=== PATIENT | female | born 2000 | race Caucasian/White ===

== ENCOUNTER 2021-09-08 10:40 | Emergency (ER) | payer OTHER, SELFPAY ==
[2021-09-08] VITALS (12 sets, daily range): BP systolic 114–126; BP diastolic 67–85; PULSE 77–87; RESP 15–16; TEMP 36.4; O2SAT 97–100
--- NOTE | 2021-09-08 10:57 | ED.ALLEREA ---
HPI - Allergic Reaction General Chief complaint: Allergic Reaction Stated complaint: hives/? allergic reaction Time Seen by Provider: 09/08/21 10:49 Source: patient History of Present Illness HPI narrative: Patient presents with concern for allergic reaction. Patient does have a history of allergies such as whey protein and she does see an painter maintenance. When she occasionally has an exposure she has a breakout of hives able to control it with Benadryl. Her symptoms started yesterday she took Benadryl last night woke up she continued to have symptoms and reported an itchy throat called her primary care doctor and referred to ER for evaluation. She denies any shortness of breath or difficulty swallowing denies any nausea vomiting or diarrhea. Related Data Home Medications Medication Instructions Recorded Confirmed cyproheptadine 4 mg tablet 4 mg PO .nightly tablet 01/04/21 01/04/21 desmopressin 4 mcg/mL injection 4 mcg IM DAILY PRN 01/04/21 01/04/21 solution montelukast 10 mg tablet 10 mg PO DAILY 01/04/21 01/04/21 norethindrone acetate 5 mg tablet 5 mg PO DAILY 01/04/21 01/04/21 Allergies Allergy/AdvReac Type Severity Reaction Status Date / Time acetaminophen Allergy Severe platelette Verified 01/04/21 09:53 [From Tylenol-Codeine #3] function disorder codeine Allergy Severe platelette Verified 01/04/21 09:53 [From Tylenol-Codeine #3] function disorder ibuprofen Allergy Severe platelette Verified 01/04/21 09:53 function disorder Review of Systems Review of Systems: CONSTITUTIONAL: Denies fever, chills, or sweats. EYES: Denies visual changes, redness, or discharge. ENT: Denies rhinorrhea, congestion, sore throat, or otalgia. CARDIOVASCULAR: Denies chest pain, palpitations, or edema. RESPIRATORY: Denies cough or dyspnea. GASTROINTESTINAL: Denies abdominal pain, nausea, vomiting, or diarrhea. GENITOURINARY: Denies dysuria or hematuria. SKIN: Diffuse pruritus and hives MUSCULOSKELETAL: Denies back pain, joint pain, or myalgia. NEUROLOGIC: Denies headache, numbness, dizziness, or weakness. PSYCHIATRIC: Denies anxiety or depression. All systems reviewed & are unremarkable except as noted in HPI and below PMFSH Surgical History Surgical History H/O knee surgery Social History Social History Smoking status: Never smoker Alcohol intake: never Substance use: never Substance use type: does not use Additional occupation/education comments: [employer] Exam Narrative: GENERAL: Well-appearing, well-nourished, and in no acute distress. HEAD: Normocephalic, atraumatic. EYES: PERRLA and EOMI. ENT: Nares clear, no rhinorrhea or epistaxis. Mucous membranes moist. No uvula edema no swelling the posterior pharynx NECK: Supple. No masses. No JVD CHEST: Clear to auscultation. No respiratory distress. No wheezes rales or rhonchi HEART: Regular rate and rhythm. No murmur heard. Normal peripheral pulses. ABDOMEN: Soft, nontender, nondistended, normal active bowel sounds. EXTREMITIES: Normal range of motion. No edema. SKIN: Warm, dry diffuse mild to moderate urticaria prominent on the torso and extremities NEURO: No focal deficits. Alert and oriented x3. PSYCH: Normal mood and affect. Course Reevaluation(s) Reevaluation #1: Patient reports feeling much improved to like she can manage her symptoms at home she would like to be discharged. Improving symptoms safe plan. Date: 09/08/21 Time: 12:32 Vital Signs Vital signs: Vital Signs Pulse Rate 81 09/08/21 10:48 Respiratory Rate 15 09/08/21 10:48 Pulse Oximetry 100 09/08/21 10:48 Temperature 36.4 C L 09/08/21 10:49 Pulse Rate 87 09/08/21 12:01 Respiratory Rate 16 09/08/21 12:01 Blood Pressure 114/67 09/08/21 12:01 Pulse Oximetry 100 09/08/21 12:01 MDM - Allergic Reaction MDM [facility]
[2021-09-08] MEDS: predniSONE 20 MG TABLET 60 MG PO (11:02)
[2021-09-08] MEDS: diphenhydrAMINE HCl CAP 25 MG CAPSULE 50 MG PO (11:02)
== END 2021-09-08 12:43 | disposition home or self-care (01) ==
PROVIDERS: Emergency Provider Emergency Medicine; PCP Internal Medicine
DX: L50.0 Allergic urticaria (principal)
CPT/HCPCS: 99283; A9270; J7512

== ENCOUNTER 2022-09-09 10:48 | Emergency (ER) | payer OTHER, SELFPAY ==
--- NOTE | ~2022-09-09 | US_ITS ---
US OB <= 14 weeks fetus DATE: 09/09/2022 12:06 INDICATION: Vaginal bleeding. Recent positive test, but late as test is negative. TECHNIQUE: Real-time imaging via transabdominal and transvaginal approaches COMPARISON: None FINDINGS: The uterus measures approximately 7 cm height, 2.9 cm AP dimension. Central endometrial ech o complex measures approximately 6 mm AP dimension. No intrauterine gestational sac is identified. Right ovary 3.6 x 1.9 x 2.5 cm. Left ovary 2.7 x 2 x 1.7 cm. Vascular flow to the ovaries is noted. No abnormal free pelvic fluid collection is evident. IMPRESSION: No intrauterine gestational sac is identified. Reviewed, dictated and finalized at [facility]. Reviewed, dictated and finalized at location [facility].
[2022-09-09 10:49] VITALS: BP 142/88; PULSE 89; RESP 18; TEMP 36.7; O2SAT 100
[2022-09-09 11:00] LABS: Basophils Percent Auto 0.5 % (0.2-1.2); Eosinophils Absolute Auto 0.1 K/mm3 (0-0.3); Eosinophils Percent Auto 1.5 % (0-4.4); Hematocrit 42.3 % (37.0-47.0); Hemoglobin 13.3 g/dL (12.0-15.0); Immature Granulocyte Absolute 0.02 K/mm3 (0.00-0.031); Immature Granulocyte Percent A 0.3 % (0-0.5); Lymphocytes Absolute Auto 2.46 K/mm3 (0.9-3.2); Lymphocytes Percent Auto 31.6 % (18.3-44.2); Mean Corpuscular HGB Conc 31.4 g/dl (32-36); Mean Corpuscular Hemoglobin 26.9 pg (26-34); Mean Corpuscular Volume 85.5 fl (80-100); Mean Platelet Volume 9.7 fl (7.4-10.4); Monocytes Absolute Auto 0.5 K/mm3 (0.1-0.6); Monocytes Percent Auto 6.5 % (2.6-8.5); Neutrophils Absolute Auto 4.6 K/mm3 (1.3-6.7); Neutrophils Percent Auto 59.6 % (45.5-73.1); Platelet Count Result 263 k/mm3 (150-375); Red Blood Count 4.95 M/mm3 (4.2-5.4); Red Cell Distribution Width 12.8 % (11.5-14.5); White Blood Count 7.8 K/mm3 (4.5-10.0)
[2022-09-09 11:27] LABS: Beta HCG Quantitative < 2.39 mIU/ML
--- NOTE | 2022-09-09 12:11 | ED.GENADULT ---
HPI - General Adult General Chief complaint: Vaginal Bleeding Stated complaint: post miscarriage Time Seen by Provider: 09/09/22 11:42 History of Present Illness HPI narrative: 21-year-old female presented the emergency department for evaluation of vaginal bleeding. Patient suspects she is approximately 1 month . Patient is G1, P0. Patient noticed the bleeding today. Patient states she is having some abdominal cramping which she describes as menstrual cramping. Patient denies any associated nausea vomiting or diarrhea. Patient reports she has follow-up with Dr. Reaves for OB but has not yet had an ultrasound with this . Patient reports she did have 4 positive home test. Related Data Home Medications Medication Instructions Recorded Confirmed cyproheptadine 4 mg tablet 4 mg PO .nightly 01/04/21 01/04/21 desmopressin 4 mcg/mL injection 4 mcg IM DAILY PRN 01/04/21 01/04/21 solution montelukast 10 mg tablet 10 mg PO DAILY 01/04/21 01/04/21 norethindrone acetate 5 mg tablet 5 mg PO DAILY 01/04/21 01/04/21 Allergies Allergy/AdvReac Type Severity Reaction Status Date / Time acetaminophen Allergy Severe platelette Verified 09/09/22 10:54 [From Tylenol-Codeine #3] function disorder codeine Allergy Severe platelette Verified 09/09/22 10:54 [From Tylenol-Codeine #3] function disorder ibuprofen Allergy Severe platelette Verified 09/09/22 10:54 function disorder Review of Systems Review of Systems: All systems reviewed & are unremarkable except as noted in HPI and below PMFSH Surgical History Surgical History H/O knee surgery Social History Social History Smoking status: Never smoker Alcohol intake: never Substance use: never Substance use type: does not use Occupation/Education: occupation Additional occupation/education comments: [employer] Exam Narrative: APPEARANCE: Well appearing, no pain, no distress, well-nourished. HEAD: normocephalic, atraumatic. EYES: PERRLA/EOMI, conjunctivae clear THROAT: Pharynx clear, no exudate. NECK: Supple. No adenopathy, no masses. RESPIRATORY: Airway patent, respirations nonlabored. Clear to auscultation bilaterally, no rales, rhonchi, wheezing. CARDIOVASCULAR: Regular rate and rhythm without murmurs rubs or gallops. ABDOMINAL: Soft, nontender, nondistended, normal bowel sounds MUSCULOSKELETAL: Moves all extremities. Strength/ROM intact, No edema, No calf tenderness. NEURO: Alert. Cranial nerves II through XII intact. Grossly intact SKIN: Warm, dry. Normal Color Course Course Emergency Course: 21-year-old female that is presented to the ED for vaginal bleeding and abdominal cramping. Ultrasound was ordered to rule out ectopic . Patient family were updated on the plan for work-up. Patient's beta hCG was less than 2.39. Patient reports that the vaginal bleeding is minimal and cramping similar to menstrual bleeding. Patient's hemoglobin was 13.3. Patient's blood type was a positive. ultrasound showed no sac. With the low beta-hCG and no identified sac a miscarriage is highly suspected. Patient and family were updated on the results of the work-up and they were encouraged of close follow-up with the patient's DATA VIRTUALIZATION CONSULTANT. Patient family comfortable with the plan for discharge and close follow-up. Reasons to return to the emergency department were discussed. On reexamination at time of discharge patient had only minimal tenderness to palpation and was in no distress. Low concern for ectopic at this time. Vital Signs Vital signs: Vital Signs Temperature 98.0 F 09/09/22 10:49 Pulse Rate 89 09/09/22 10:49 Respiratory Rate 18 09/09/22 10:49 Blood Pressure 142/88 H 09/09/22 10:49 Pulse Oximetry 100 09/09/22 10:49 Oxygen Delivery Room
[2022-09-09 14:20] VITALS: BP 120/76; PULSE 82; RESP 16; O2SAT 99
== END 2022-09-09 14:20 | disposition home or self-care (01) ==
PROVIDERS: Emergency Provider Emergency Medicine; PCP Internal Medicine
DX: O20.0 Threatened abortion (principal); Z3A.01 Less than 8 weeks gestation of pregnancy
CPT/HCPCS: 36415; 76801; 84702; 85025; 85461; 86850; 86900; 86901; 99284

== ENCOUNTER 2023-05-17 22:01 | Observation (INO) | payer OTHER, SELFPAY ==
[2023-05-17] VITALS (8 sets, daily range): BP systolic 106–122; BP diastolic 56–65; PULSE 138–140; TEMP 37–38.7; O2SAT 95; BMI 31.0
--- NOTE | ~2023-05-17 | XR_ITS ---
XR chest 2V 05/19/2023 08:38 Indication: Fever. Procedure: 2 view chest Comparison: No prior studies for comparison. Findings: Heart size normal. Right basilar atelectasis. No focal pneumonia, edema, pleural effusion o r pneumothorax. No acute osseous abnormality. Impression: 1: Right basilar atelectasis. Reviewed, dictated and finalized at location A. OR ACTUARIAL ANALYST Impression: 1: Right basilar atelectasis.
--- NOTE | ~2023-05-17 | US_ITS ---
US renal BI 05/19/2023 09:00 Procedure: Realtime transabdominal ultrasound of the kidneys and bladder. Indication: Fever. Urinary frequency. Comparison: No prior studies for comparison. Findings: Renal echotexture is normal bilaterally without contour deforming mass or renal calculus. T here is mild bilateral renal caliectasis. The right kidney measures 12.4 cm and left kidney measures 12.2 cm. Bladder within normal limits. Impression: 1: Mild bilateral renal caliectasis. Reviewed, dictated and finalized at location A. TRICAL TESTER BATTERY Impression: 1: Mild bilateral renal caliectasis.
[2023-05-17] MEDS: LACTATED RINGERS 1,000 ML 999 ML IV CONT (20:18)
[2023-05-17 20:21] LABS: Basophils Percent Auto 0.3 % (0.2-1.2); Hematocrit 32.9 % (37.0-47.0); Hemoglobin 10.3 g/dL (12.0-15.0); Immature Granulocyte Absolute 0.13 K/mm3 (0.00-0.031); Immature Granulocyte Percent A 0.9 % (0-0.5); Lymphocytes Absolute Auto 1.07 K/mm3 (0.9-3.2); Lymphocytes Percent Auto 7.1 % (18.3-44.2); Mean Corpuscular HGB Conc 31.3 g/dl (32-36); Mean Corpuscular Hemoglobin 25.2 pg (26-34); Mean Corpuscular Volume 80.6 fl (80-100); Mean Platelet Volume 10.3 fl (7.4-10.4); Monocytes Absolute Auto 1.1 K/mm3 (0.1-0.6); Neutrophils Absolute Auto 12.8 K/mm3 (1.3-6.7); Neutrophils Percent Auto 84.7 % (45.5-73.1); Platelet Count Result 175 k/mm3 (150-375); Red Blood Count 4.08 M/mm3 (4.2-5.4); White Blood Count 15.1 K/mm3 (4.5-10.0)
[2023-05-17 20:36] LABS: Appearance Urine Clear (Clear); Bacteria Urine None Seen /hpf; Bilirubin Urine Negative (Negative); Blood Urine Negative (Negative); Color Urine Yellow (Yellow); Glucose Urine UA 1+ mg/dL (Negative); Ketones Urine 3+ mg/dL (Negative); Leukocyte Esterase Ur Trace LEU/UL (NEGATIVE); Nitrate Urine Negative (Negative); Non Pathogenic Casts 0-2; Protein Urine Trace mg/dL (Negative); Specific Grav Ur 1.017 (1.001-1.035); Squamous Epithelial Cell Urine Few /hpf (Few); WBC Urine 21-50 /hpf (0-3); pH Urine 7.5 (5.0-9.0)
[2023-05-17 20:56] LABS: Alanine Aminotransferase 22 U/L (6-35); Alkaline Phosphatase 106 U/L (38-126); Anion Gap 8 mmol/L (8-16); Aspartate Amino Transferase 22 U/L (14-36); Bilirubin,Total 0.5 mg/dL (0.2-1.3); Blood Urea Nitrogen 3 mg/dL (7-17); Calcium 9.5 mg/dL (8.4-10.2); Carbon Dioxide 19 mmol/L (22-30); Chloride 103 mmol/L (98-107); Estimated CRCL calculation 172 ml/min; Estimated Glomerular Filt Rate > 60; Glucose 88 mg/dL (65-110); Potassium 3.5 mmol/L (3.4-5.0); Sodium 130 mmol/L (137-145)
[2023-05-17 20:58] LABS: Add Urine Microscopic? YES
[2023-05-17] MEDS: LACTATED RINGERS 1,000 ML 125 ML IV CONT (21:43)
[2023-05-17] MEDS: ceFAZolin 2 GM/D5W 50 ML 2 GM/50 ML BAG IVPB (21:45)
[2023-05-17] MEDS: ACETAMINOPHEN 500 MG TABLET 1000 MG PO (21:53)
[2023-05-18] VITALS (35 sets, daily range): BP systolic 91–129; BP diastolic 55–72; PULSE 115–149; RESP 14–16; TEMP 36.4–38.1; O2SAT 93–100
[2023-05-18] MEDS: LACTATED RINGERS 1,000 ML 125 ML IV CONT ×3 (04:58→21:34)
[2023-05-18 05:11] LABS: Appearance Urine Clear (Clear); Bacteria Urine None Seen /hpf; Bilirubin Urine Negative (Negative); Blood Urine Negative (Negative); Color Urine Yellow (Yellow); Glucose Urine UA 1+ mg/dL (Negative); Ketones Urine 2+ mg/dL (Negative); Leukocyte Esterase Ur Negative LEU/UL (NEGATIVE); Nitrate Urine Negative (Negative); Non Pathogenic Casts 0-2; Protein Urine Trace mg/dL (Negative); RBC Urine 0-2 /hpf (0-2); Specific Grav Ur 1.022 (1.001-1.035); Squamous Epithelial Cell Urine None seen /hpf (Few); WBC Urine 0-5 /hpf (0-3)
[2023-05-18 05:12] LABS: Add Urine Microscopic? YES
[2023-05-18] MEDS: ceFAZolin 2 GM/D5W 50 ML 2 GM/50 ML BAG IVPB ×3 (06:19→22:13)
[2023-05-18] MEDS: ACETAMINOPHEN 500 MG TABLET 1000 MG PO ×3 (07:33→20:06)
--- NOTE | 2023-05-18 09:43 | PM.IMHP ---
H&P: HPI History of Present Illness Date/Time: 05/18/23 09:43 Chief Complaint: abdominal pain Narrative: The patient is a 22-year-old 2 para 0 aborta 1@ 26 /7 with the onset of low back pain and low abdominal pain Sunday prior to admission. Patient stated she was also having contractions at that time. Patient presented to Labor and delivery last evening at 6:00 p.m.. On arrival temperature was a 101.7? and patient and fetus were tachycardic. Patient labs showed an elevated white count and urine with 21 to 50 white blood cells. Patient was given IV fluid bolus, Ancef, and Tylenol. This morning the patient has significant urinary frequency and urgency as well. 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 Patient states she bleeds easily and does not stop but there is no official diagnosis. has been otherwise uncomplicated so far. Patient does report good movement. 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, disease or syndrome Surgical History Surgical History H/O knee surgery Social History Social History Smoking status: Never smoker Alcohol intake: never Substance use: never Substance use type: does not use Living arrangements: with family Occupation/Education: occupation Additional occupation/education comments: [employer] Gender identity (if verbalized by the patient): Female Sexual Orientation (if Verbalized by the Patient): Straight or Heterosexual Meds Home Medications and Allergies Home Medications Medication Instructions Recorded Confirmed Type epinephrine 0.3 mg/0.3 mL 0.3 mg (0.3 mL) IM Q5-15M PRN 09/08/21 05/17/23 Rx injection, auto-injector anaphylaxis #2 ea omalizumab 150 mg subcutaneous 300 mg subcut ONCE 01/08/23 05/17/23 History solution (Xolair) ondansetron HCl 4 mg tablet 4 mg PO Q6H PRN nausea and 02/06/23 05/17/23 Rx vomiting #30 tabs famotidine 20 mg tablet (Pepcid) 20 mg PO DAILY 05/17/23 05/17/23 History vits 75-iron 28 mg-folic pkg PO 05/17/23 History acid 800 mcg-omega-3 oral combo pack Allergies Allergy/AdvReac Type Severity Reaction Status Date / Time codeine Allergy Severe platelette Verified 03/06/23 08:58 [From Tylenol-Codeine #3] function disorder ibuprofen Allergy Severe platelette Verified 03/06/23 08:58 function disorder Vital Signs Vital Signs - 24 hr 05/17/23 18:36 05/17/23 18:37 05/17/23 18:45 Temperature 101.7 F H Pulse Rate 138 H 139 H Blood Pressure 112/65 113/63 Pulse Oximetry 95 05/17/23 19:00 05/17/23 19:15 05/17/23 20:23 Temperature Pulse Rate 140 H 138 H 140 H Blood Pressure 115/61 106/56 L 122/63 Pulse Oximetry 05/17/23 23:09 05/17/23 21:53 05/18/23 02:57 Temperature 98.6 F 101.7 F H 98.7 F Pulse Rate 115 H Blood Pressure 101/59 L Pulse Oximetry 05/18/23 03:01 05/18/23 05:41 05/18/23 07:22 Temperature 99.7 F H Pulse Rate 123 H 149 H Blood Pressure 117/61 Pulse Oximetry Exam Const: General: comfortable and no acute distress Resp: Effort & Inspection: normal respiratory effort GI: GI Palp: Yes abdominal tenderness ( mild suprapubic) and Yes Other GI palpation findings present ( no CVA tenderness) Auscultation: other ( heart tones appropriate f
[2023-05-18] MEDS: PHENAZOPYRIDINE HCL 100 MG TABLET 200 MG PO (09:57)
[2023-05-18] MEDS: SODIUM CHLORIDE 0.9% IV 1,000 ML 999 ML IV CONT (10:48)
[2023-05-19 03:07] VITALS: BP 113/73; PULSE 129; RESP 14; TEMP 37.4; O2SAT 98
[2023-05-19 03:09] VITALS: PULSE 126; O2SAT 97
[2023-05-19] MEDS: LACTATED RINGERS 1,000 ML 125 ML IV CONT (05:25)
[2023-05-19] MEDS: ceFAZolin 2 GM/D5W 50 ML 2 GM/50 ML BAG IVPB (06:19)
[2023-05-19 07:30] VITALS: TEMP 37.6
[2023-05-19 08:59] LABS: SARS-CoV-2 RNA PCR Negative (Negative)
--- NOTE | 2023-05-19 09:00 | PC.NURSE ---
Dr Sanford here to see patient, plan of care discussed. Orders received.
--- NOTE | 2023-05-19 09:09 | PM.OBPNVD ---
OB - PN: Subj Subjective Date/time seen: 05/19/23 09:09 Interval history: She states she gets occasional chills and headache. She c/o mild pelvic pressure. No dysuria. No nausea or vomiting or sore throat. Denies cough. temp of 100.6 at 1999 OB - PN: Obj Data Labs 05/17/23 19:37 05/17/23 19:37 Labs: Laboratory Results - last 24 hr 05/19/23 08:12 SARS-CoV-2 RNA (RT-PCR) Negative Imaging Radiologist's impression: Impressions Chest X-Ray 05/19/23 08:43 Impression: 1: Right basilar atelectasis. OB - PN A/P Assessment and Plan (1) Fever of unknown origin: Code(s): R50.9 - Fever, unspecified Status: Acute Plan Urine culture obtained prior to antibiotics negative, therefore neg urine origin, she does have frequency which may be positional, will check renal ultrasound and will rule out other source for fever/chills symptoms- chest xray shielded and renal ultrasound, covid test. The chest xray did show atelectasis which can cause low grade temp will start incentive spirometer. Covid neg. Will check cbc cmp. Time Spent With Patient Time: Total time spent is greater than 50% in coordination of care (as documented) at patient's floor/unit and/or counseling patient: Exam Const: General: comfortable Eyes: General: appearance normal, both eyes and all related structures Resp: Effort & Inspection: normal respiratory effort Cardio: Rate: regular rate GI: Inspection: normal to inspection (gravid nontender) : External Female Exam: normal external appearance Other: cervix closed thick high Extrem: General: normal to inspection and no calf tenderness Psych: Appearance: grossly normal
[2023-05-19 09:31] LABS: Basophils Percent Auto 0.4 % (0.2-1.2); Hematocrit 28.7 % (37.0-47.0); Hemoglobin 8.9 g/dL (12.0-15.0); Immature Granulocyte Absolute 0.06 K/mm3 (0.00-0.031); Immature Granulocyte Percent A 0.8 % (0-0.5); Lymphocytes Absolute Auto 0.71 K/mm3 (0.9-3.2); Lymphocytes Percent Auto 8.9 % (18.3-44.2); Mean Corpuscular Hemoglobin 25.4 pg (26-34); Mean Corpuscular Volume 81.8 fl (80-100); Mean Platelet Volume 10.2 fl (7.4-10.4); Monocytes Absolute Auto 0.6 K/mm3 (0.1-0.6); Neutrophils Absolute Auto 6.6 K/mm3 (1.3-6.7); Neutrophils Percent Auto 82.9 % (45.5-73.1); Platelet Count Result 140 k/mm3 (150-375); Red Blood Count 3.51 M/mm3 (4.2-5.4); Red Cell Distribution Width 14.5 % (11.5-14.5)
[2023-05-19 09:42] LABS: Alanine Aminotransferase 49 U/L (6-35); Albumin Level 3.1 g/dL (3.5-5.1); Alkaline Phosphatase 92 U/L (38-126); Anion Gap 6 mmol/L (8-16); Aspartate Amino Transferase 54 U/L (14-36); Bilirubin,Total 0.4 mg/dL (0.2-1.3); Calcium 8.5 mg/dL (8.4-10.2); Carbon Dioxide 18 mmol/L (22-30); Chloride 108 mmol/L (98-107); Estimated CRCL calculation 172 ml/min; Estimated Glomerular Filt Rate > 60; Glucose 121 mg/dL (65-110); Sodium 132 mmol/L (137-145)
[2023-05-19 09:43] LABS: Blood Urea Nitrogen < 2 mg/dL (7-17)
--- NOTE | 2023-05-19 10:02 | PC.NURSE ---
Repeat lab results called to jhoan Donahue to dc home this afternoon and make follow up with primary MD.
[2023-05-19 11:18] VITALS: BP 116/68; PULSE 126
[2023-05-19 11:20] VITALS: TEMP 36.4
--- NOTE | 2023-05-19 11:32 | PM.OBPNVD ---
OB - PN: Subj Subjective Date/time seen: 05/19/23 11:32 Interval history: LFT were mildly elevated. Not able to do RUQ u/s to rule out gallstones until npo for eight hours. Anemia of which is changed from admission but most likely due to hydration. Patient and mother enquired about being evauated at [facility] where she gets see her MFM. She was informed that that is an option to get evaluated at there walk in clinic. She could be discharged from here if thats what she wants. Will continue monitor and stop antibiotics since Urine culture neg. Incentive spirometer started for the atelectasis. OB - PN: Obj Data Labs 05/19/23 09:22 05/19/23 09:22 Labs: Laboratory Results - last 24 hr 05/19/23 05/19/23 08:12 09:22 WBC 8.0 RBC 3.51 L Hgb 8.9 L Hct 28.7 L MCV 81.8 MCH 25.4 L MCHC 31.0 L RDW 14.5 Plt Count 140 L MPV 10.2 Immature Gran % (Auto) 0.8 H Neut % (Auto) 82.9 H Lymph % (Auto) 8.9 L [place] % (Auto) 7.0 Eos % (Auto) 0.0 Baso % (Auto) 0.4 Lymph # (Auto) 0.71 L [place] # (Auto) 0.6 Eos # (Auto) 0.0 Baso # (Auto) 0.0 Abs Immat Gran (auto) 0.06 H Absolute Neuts (auto) 6.6 Absolute Nucleated RBC 0.0 Nucleated RBC % 0.0 Sodium 132 L Potassium 3.0 L Chloride 108 H Carbon Dioxide 18 L Anion Gap 6 L BUN < 2 L Creatinine 0.40 L Estim Creat Clear Calc 172 Estimated GFR > 60 Glucose 121 H Calcium 8.5 Total Bilirubin 0.4 AST 54 H ALT 49 H Alkaline Phosphatase 92 Total Protein 6.0 L Albumin 3.1 L SARS-CoV-2 RNA (RT-PCR) Negative Imaging Radiologist's impression: Impressions Chest X-Ray 05/19/23 08:43 Impression: 1: Right basilar atelectasis. Renal Ultrasound 05/19/23 09:08 Impression: 1: Mild bilateral renal caliectasis. OB - PN A/P Time Spent With Patient Time: Total time spent is greater than 50% in coordination of care (as documented) at patient's floor/unit and/or counseling patient:
[2023-05-19 11:47] VITALS: PULSE 117
--- NOTE | 2023-06-11 11:54 | PM.OBTRLD ---
OB - Triage/Final Diagnosis Visit Information Reason for evaluation: other ( fever of unknown origin) Comments/Additional reasons for admission: I have assessed the risk for this patient, Marianela Her, and determined that she would benefit from observation care. Evaluation Laboratory results: Laboratory Tests 05/17/23 05/18/23 05/19/23 19:37 04:57 08:12 WBC 15.1 H RBC 4.08 L Hgb 10.3 L D Hct 32.9 L MCV 80.6 MCH 25.2 L MCHC 31.3 L RDW 14.0 Plt Count 175 MPV 10.3 Immature Gran % (Auto) 0.9 H Neut % (Auto) 84.7 H Lymph % (Auto) 7.1 L [place] % (Auto) 7.0 Eos % (Auto) 0.0 Baso % (Auto) 0.3 Lymph # (Auto) 1.07 [place] # (Auto) 1.1 H Eos # (Auto) 0.0 Baso # (Auto) 0.0 Abs Immat Gran (auto) 0.13 H Absolute Neuts (auto) 12.8 H Absolute Nucleated RBC 0.0 Nucleated RBC % 0.0 Sodium 130 L Potassium 3.5 Chloride 103 Carbon Dioxide 19 L Anion Gap 8 BUN 3 L Creatinine 0.40 L Estim Creat Clear Calc 172 Estimated GFR > 60 Glucose 88 Calcium 9.5 Total Bilirubin 0.5 AST 22 ALT 22 Alkaline Phosphatase 106 Total Protein 7.0 Albumin 4.0 Urine Color Yellow Yellow Urine Appearance Clear Clear Urine pH 7.5 6.0 Ur Specific Ecru 1.017 1.022 Urine Protein Trace Trace Urine Glucose (UA) 1+ H 1+ H Urine Ketones 3+ H 2+ H Ur Blood (Man) Negative Negative Urine Nitrate Negative Negative Urine Bilirubin Negative Negative Urine Urobilinogen 1.0 1.0 Ur Leukocyte Esterase Trace H Negative Urine RBC 3-5 H 0-2 Urine WBC 21-50 0-5 Ur Squamous Epith Cells Few None seen Urine Bacteria None seen None seen Urine Casts 0-2 0-2 SARS-CoV-2 RNA (RT-PCR) Negative 05/19/23 09:22 WBC 8.0 RBC 3.51 L Hgb 8.9 L Hct 28.7 L MCV 81.8 MCH 25.4 L MCHC 31.0 L RDW 14.5 Plt Count 140 L MPV 10.2 Immature Gran % (Auto) 0.8 H Neut % (Auto) 82.9 H Lymph % (Auto) 8.9 L [place] % (Auto) 7.0 Eos % (Auto) 0.0 Baso % (Auto) 0.4 Lymph # (Auto) 0.71 L [place] # (Auto) 0.6 Eos # (Auto) 0.0 Baso # (Auto) 0.0 Abs Immat Gran (auto) 0.06 H Absolute Neuts (auto) 6.6 Absolute Nucleated RBC 0.0 Nucleated RBC % 0.0 Sodium 132 L Potassium 3.0 L Chloride 108 H Carbon Dioxide 18 L Anion Gap 6 L BUN < 2 L Creatinine 0.40 L Estim Creat Clear Calc 172 Estimated GFR > 60 Glucose 121 H Calcium 8.5 Total Bilirubin 0.4 AST 54 H ALT 49 H Alkaline Phosphatase 92 Total Protein 6.0 L Albumin 3.1 L Urine Color Urine Appearance Urine pH Ur Specific Ecru Urine Protein Urine Glucose (UA) Urine Ketones Ur Blood (Man) Urine Nitrate Urine Bilirubin Urine Urobilinogen Ur Leukocyte Esterase Urine RBC Urine WBC Ur Squamous Epith Cells Urine Bacteria Urine Casts SARS-CoV-2 RNA (RT-PCR)
== END 2023-05-19 12:04 | disposition home or self-care (01) ==
PROVIDERS: Admitting Provider Obstetrics & Gynecology Gynecology; PCP Internal Medicine; Visit Provider Obstetrics & Gynecology
DX: O23.42 Unspecified infection of urinary tract in pregnancy, second trimester (principal); O99.512 Diseases of the respiratory system complicating pregnancy, second trimester; O26.833 Pregnancy related renal disease, third trimester; J98.11 Atelectasis; Z3A.26 26 weeks gestation of pregnancy; Z20.822 Contact with and (suspected) exposure to COVID-19
CPT/HCPCS: 36415; 59025; 71046; 76775; 80053; 81001; 85025; 87086; 87088; 87635; 96360; 96361; 96365; 96374; A9270; G0378; G0379; J0690; J7030; J7120

== ENCOUNTER 2023-11-01 08:04 | Emergency (ER) | payer OTHER, SELFPAY ==
--- NOTE | 2023-11-01 08:07 | ED.URI ---
HPI - URI/Sore Throat General Chief Complaint: Upper Respiratory Infection Stated Complaint: Earache, Sore Throat,Cough,Drainage Time Seen by Provider: 11/01/23 08:05 Source: patient Mode of arrival: ambulatory Limitations: no limitations History of Present Illness HPI Narrative: Marianela is a 22-year-old female patient presenting to the clinic today with complaints of earache, sore throat, cough, and nasal drainage x1 week. She reports no known fever or chills. States she was seen in the urgent care earlier this week at [place] and they gave her Keflex. She reports that they did not do any testing of the time. She has taken a couple days worth of Keflex but states she was not feeling any better so she discontinued the medication. She has also been taking Sudafed and Mucinex to help alleviate her symptoms. States that she had a lot of drainage this morning that she coughs so hard and vomited. She is currently on her menses. No chance of . She is not breast-feeding currently. MD elicited complaint: cough, sore throat, rhinorrhea, nasal congestion and sinus pain Related Data Home Medications Medication Instructions Recorded Confirmed omalizumab 150 mg subcutaneous 300 mg subcut ONCE 01/08/23 11/01/23 solution (Xolair) Allergies Allergy/AdvReac Type Severity Reaction Status Date / Time codeine Allergy Severe platelette Verified 11/01/23 08:12 [From Tylenol-Codeine #3] function disorder ibuprofen Allergy Severe platelette Verified 11/01/23 08:12 function disorder Review of Systems Review of Systems: Pertinent positives per HPI. Patient denies any fever, chills, rash, headache, visual changes, dizziness, shortness of breath, chest pain, palpitations, nausea, vomiting, diarrhea, constipation, abdominal pain, or any urinary issues. 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 There is no relevant family history pertinent to the patient complaint. Exam Narrative: General: Well-developed, well nourished, in no apparent distress Head: Normocephalic, atraumatic Eyes: Pupils equally round and reactive to light bilaterally, EOM intact, sclera and conjunctive clear, no discharge, lids normal Ears: TMs intact and congested, ear canals clear, no drainage, grossly hearing normal. Nose: Nares patent, clear nasal discharge, moderate inflammation, no sinus tenderness. Mouth: Oral pharynx mildly red without lesions or masses, good dentition, MMM. Neck: Supple, trachea midline, no enlargement of anterior or posterior cervical nodes, no thyroid masses or goiter palpable. Cardio: Regular rate and rhythm, s1 and s2 normal, no murmur appreciated. Resp: Clear to auscultation bilaterally, no rhonchi, rales, wheezing or rubs Course Course Emergency Course: Portions of this record may have been created with voice recognition software. Level of Care: Express Care Visit Vital Signs Vital signs: Vital signs reviewed MDM - URI/Sore Throat MDM Narrative Medical decision making narrative: At the time of visit pat
[2023-11-01 08:15] VITALS: BP 117/87; PULSE 93; RESP 20; TEMP 36.6; O2SAT 100
== END 2023-11-01 08:35 | disposition home or self-care (01) ==
PROVIDERS: Emergency Provider Nurse Practitioner Family; PCP Internal Medicine
DX: B34.9 Viral infection, unspecified (principal); J06.9 Acute upper respiratory infection, unspecified; J02.9 Acute pharyngitis, unspecified; Q79.60 Ehlers-Danlos syndrome, unspecified
CPT/HCPCS: 87081; 87880; 99213; G0463

== ENCOUNTER 2024-01-31 08:04 | Emergency (ER) | payer OTHER, SELFPAY ==
--- NOTE | 2024-01-31 08:08 | ED.URI ---
HPI - URI/Sore Throat General Chief Complaint: Upper Respiratory Infection Stated Complaint: SORE THROAT/SNEEZING/HEADACHE Time Seen by Provider: 01/31/24 08:08 Source: patient Mode of arrival: ambulatory Limitations: no limitations History of Present Illness HPI Narrative: 23-year-old female presents with complaint of sore throat, nasal congestion, sneezing since yesterday. Afebrile. No strep or COVID exposure. Patient works in doctor's office. Wants to be tested for strep throat. All systems reviewed and negative except as noted above. Related Data Home Medications Medication Instructions Recorded Confirmed omalizumab 150 mg subcutaneous 300 mg subcut ONCE 01/08/23 01/31/24 solution (Xolair) sertraline 25 mg tablet mg 01/31/24 01/31/24 Allergies Allergy/AdvReac Type Severity Reaction Status Date / Time codeine Allergy Severe platelette Verified 01/31/24 08:14 [From Tylenol-Codeine #3] function disorder ibuprofen Allergy Severe platelette Verified 01/31/24 08:14 function disorder Review of Systems Review of Systems: CONSTITUTIONAL: Denies fever, chills, or sweats. EYES: Denies visual changes, redness, or discharge. ENT: Reports rhinorrhea, congestion, sore throat, sneezing. Denies otalgia. CARDIOVASCULAR: Denies chest pain, palpitations, or edema. RESPIRATORY: Denies cough or dyspnea. GASTROINTESTINAL: Denies abdominal pain, nausea, vomiting, or diarrhea. GENITOURINARY: Denies dysuria or hematuria. SKIN: Denies rash or itching. MUSCULOSKELETAL: Denies back pain, joint pain, or myalgia. NEUROLOGIC: Denies headache, numbness, or weakness. PSYCHIATRIC: Denies anxiety or depression. All other systems reviewed are negative, except as documented in HPI. 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 There is no relevant family history pertinent to the presenting complaint. Exam Narrative: GENERAL: This is a well-nourished, well-developed patient, in no apparent distress. HEAD: normocephalic, atraumatic. EYES: PERRL. Sclera clear/white. Vision is grossly intact. EARS: External ears normal, auditory canals clear and without drainage, TMs normal without perforation. Hearing grossly intact. NOSE: External nose normal with no obvious nasal discharge, nares without redness, no rhinorrhea. THROAT: Mucous membranes moist, posterior pharynx clear. NECK: Neck supple, non-tender without lymphadenopathy, masses or thyromegaly. CARDIOVASCULAR: Regular rate and rhythm without murmurs, gallops, or rubs. RESPIRATORY: Clear to auscultation. Breath sounds equal bilaterally. No wheezes, rales, or rhonchi. SKIN: warm, Dry, intact with no suspicious lesions or rash, good texture and turgor. NEURO: awake, alert, and oriented to person, place and time. There were no obvious focal neurologic abnormalities. EXTREMITIES: No joint tenderness, effusion, or edema noted. Course Course Level of Care: Express Care Visit Vital Signs Vital signs: Reviewed MDM - URI/Sore Throat MDM Narrative Medical decision making narrative: Negative COVID and strep arielle
[2024-01-31 08:39] LABS: EDSTREPNEGPOS1 Negative
[2024-01-31 08:48] VITALS: BP 132/78; PULSE 97; RESP 16; TEMP 36.4; O2SAT 100
== END 2024-01-31 08:49 | disposition home or self-care (01) ==
PROVIDERS: Emergency Provider Nurse Practitioner Family; PCP Internal Medicine
DX: J06.9 Acute upper respiratory infection, unspecified (principal); Q79.60 Ehlers-Danlos syndrome, unspecified
CPT/HCPCS: 87081; 87426; 87880; 99213; G0463

== ENCOUNTER 2025-04-26 10:47 | Emergency (ER) | payer OTHER, SELFPAY ==
[2025-04-26 11:04] VITALS: BP 126/77; PULSE 81; RESP 16; TEMP 36.2; O2SAT 100
--- NOTE | 2025-04-26 12:23 | ED_ITS ---
HPI - URI/Sore Throat General Chief Complaint: Upper Respiratory Infection Stated Complaint: Sore Throat Time Seen by Provider: 04/26/25 12:18 Source: patient and RN notes reviewed Mode of arrival: ambulatory Limitations: no limitations History of Present Illness HPI Narrative: 24-year-old female patient presents today with a 2 day history of sore and scratchy throat, cough, nasal congestion. Denies fever or shortness of breath. She has tried 1 dose of NyQuil and cough drops without much improvement and currently rates her pain 2/10. Related Data Home Medications ?Medication ?Instructions ?Recorded ?Confirmed ?Last Taken ?Type omalizumab 150 mg subcutaneous 300 mg subcut ONCE 12/2401/31/24 04/30/23 History solution (Xolair) sertraline 50 mg tablet mg 04/26/25 Unknown History Allergies Allergy/AdvReac Type Severity Reaction Status Date / Time codeine (From Allergy Severe platelette Verified 04/26/25 11:18 Tylenol-Codeine #3) function disorder ibuprofen Allergy Severe platelette Verified 04/26/25 11:18 function disorder PMFSH Past Medical History Medical History History of spontaneous Chronic urticaria Tara-Danlos syndrome Platelet disorder, disease or syndrome Surgical History Surgical History H/O knee surgery Social History Social History Smoking status: Never smoker Alcohol intake: never Substance use: never Substance use type: does not use Living arrangements: with family Occupation/Education: occupation Additional occupation/education comments: [employer] Gender identity (if verbalized by the patient): Female Sexual Orientation (if Verbalized by the Patient): Straight or Heterosexual Comments At time of signature, I have reviewed and agree with nursing past medical, surgical, social and family history unless otherwise noted. Please see nursing chart for further information. There is no relevant family history pertinent to the presenting complaint Exam Narrative: GENERAL: Well-appearing, well-nourished, and in no acute distress. HEAD: Normocephalic, atraumatic. EYES: EOMI. No redness or drainage. Conjunctivae normal. ENT: Mucous membranes pink and moist. Nares mildly congested. No rhinorrhea. TMs normal bilaterally. Throat mildly erythematous without edema or exudate. Uvula midline. NECK: Normal AROM. Supple. No lymphadenopathy. CHEST: No respiratory distress. Clear to auscultation. HEART: Regular rate and rhythm. No murmur appreciated. EXTREMITIES: Normal range of motion. No edema. SKIN: Warm, dry, no rash. Capillary refill normal. Normal skin turgor. NEURO: No focal deficits. Alert and oriented x3. Gait steady. PSYCH: Normal affect. No signs of depression or anxiety. Course Course Level of Care: Express Care Visit Vital Signs Vital signs: Vital Signs Temperature 97.1 F L 04/26/25 11:04 Pulse Rate 81 04/26/25 11:04 Respiratory Rate 16 04/26/25 11:04 Blood Pressure 126/77 04/26/25 11:04 Pulse Oximetry 100 04/26/25 11:04 Temperature 97.1 F L 04/26/25 11:04 Pulse Rate 81 04/26/25 11:04 Respiratory Rate 16 04/26/25 11:04 Blood Pressure 126/77 04/26/25 11:04 Pulse Oximetry 100 04/26/25 11:04 Reviewed MDM - URI/Sore Throat MDM Narrative Medical decision making narrative: 24-year-old female patient presents today with a 2 day history of sore and scratchy throat, cough, nasal congestion. Denies fever or shortness of breath. She has tried 1 dose of NyQuil and cough drops without much improvement and currently rates her pain 2/10. Upon exam, patient has mild nasal congestion and erythematous throat. Rapid strep negative. Culture pending. Symptoms likely viral in etiology. Discussed [id number] medication use and duration of illness. No prescription medications indicated at this time. Anticipatory guidance given. Vital signs stable. Patient agrees with plan. Differential Diagnosis Differential diagnosis: Likely upper respiratory infection, otitis media, viral infection, pharyngitis and other (Strep throat) Lab Data Attestation: I reviewed the patient's lab results. Lab results narrative: Rapid strep negative Critical Care Time Critical Care Time Critical Care Time: No Discharge Plan Discharge Clinical Impression: Upper respiratory infection Qualifiers: URI type: unspecified URI Qualified Code(s): J06.9 - Acute upper respiratory infection, unspecified Patient Disposition: Home Condition: Stable Instructions: Upper Respiratory Infection (DC) Additional Instructions: Your rapid strep swab was negative today at [facility]. You will be notified in a few days if the culture comes back positive for strep, and appropriate antibiotics will be called in for you at that time. Your symptoms are likely due to a viral illness, which is not treated with antibiotics. Viral symptoms can be present for up to 7-10 days. Take Tylenol or ibuprofen for fever or pain. Rest and stay hydrated. Follow up with your PCP in 7 days if symptoms are not improving. Go to the ER immediately if you have any difficulty breathing or swallowing. Patient Language: Belgian Prescriptions: No Action sertraline 50 mg tablet Xolair 150 mg recon soln 300 mg subcut ONCE Rx Instructions: requires multiple injection sites; do not exceed 150 mg per injection site epinephrine 0.3 mg/0.3 mL auto-injector 0.3 mg IM Q5-15M PRN (Reason: anaphylaxis) Qty: 2 0RF Rx Instructions: do not exceed 3 doses per episode Follow-up/Referrals: PHYSICIAN,CARDIAC EXERCISE SPECIALIST [Primary Care Provider, Internal Medicine] Time of Disposition: 12:23
[2025-04-27 11:51] LABS: EDSTREPNEGPOS1 Negative (Negative)
== END 2025-04-26 12:24 | disposition home or self-care (01) ==
PROVIDERS: Emergency Provider Nurse Practitioner
DX: J06.9 Acute upper respiratory infection, unspecified (principal); Q79.60 Ehlers-Danlos syndrome, unspecified; D69.1 Qualitative platelet defects
CPT/HCPCS: 87081; 87880; 99213; G0463

== ENCOUNTER 2025-05-09 11:29 | Emergency (ER) | payer OTHER, SELFPAY ==
--- OUTSIDE RECORDS SUMMARY | 2024-07-01 08:25 | XMS_ITS | Continuity of Care Document ---
Author Organization [facility] Address [address] [facility] [address] [place] [address] Phone Care Team Providers Care Carbon Paper Interleafer Name Role Phone Kyung Vyas MD Unavailable Unavailable Allergies, Adverse Reactions, Alerts Substance Reaction Status Criticality No Known Allergies Active No Inform ation Procedures Procedure Date Est (Level 4) OFFICE/OUTPATIENT VISIT Nv New (Level 5) OFFICE/OUTPATIENT VISIT Advance Directives Directive Yes / No Effective Date File Name No Information Encounters Encounter Description Practice Location Reason(s) For Visit Diagnoses Date Provider Providers Copied on Encounter [facility], [address] [place] [address], [id number], [place] tel:[phone] [facility] No Information [address] [place], [address], [place]. tel:[phone] Referring Provider: Bradley Hodge, [address] [facility] [address], [place], [address]. tel:[phone] Est (Level 4) OFFICE/OUTPAT IENT VISIT [facility], [address] [place] [address], [id number], [place] tel:[phone] [facility] hives (chief complaint) Body mass index (BMI) 28.0-28.9, adultUrticaria 2 Asael Cheshil. [address], [place], [address], [place]. tel:[phone] Referring Provider: Bradley Hodge, [address] [facility] [address], [place], [address]. tel:[phone] New (Level 5) OFFICE/OUTPAT IENT VISIT [facility], [address] [place] [address], [id number], tel:[phone] [facility] hives (chief complaint) Body mass index (BMI) 26.0-26.9, adultUrticaria 2 Asael Cheshil. [address], [place], [address], [place]. tel:[phone] Referring Provider: Bradley Hodge, [address] [facility] [address], [place], [address]. tel:[phone] Family History Family Member Type Diagnosis Age At Onset Problem No family history of Allergi c rhinitis Problem No family histor y of Family history of rheumatoid arthritis Maternal grandmother Problem Thyroid disorder Maternal grandmother Problem Asthma Problem No family history of Lupus e rythematosus Payers Payer name Insurance type Covered libertarian ID Brenda solis(s) [facility] [id number] Social History Type Description Quantity Date Captured Comments Alcohol Use Details Unknown Caffeine Use Details Unknown Tobacco Use Status No Information Smoking Status No Information Sex Female Chief Complaint And Reason For Visit No Information Reason For Referral Reason For Referral No Information History Of Present Illness Encounter Date Complaint History Of Prese nt Illness hives LV: 09/13/21She h as urticaria. She presents for follow up.AlyceariaЕлена is on fexofenadine (phuong) 180 mg BID. She continues to have urticaria and some dermatographism. She continues to have a malar rash in the AM. The wheals are not pruritic. She continues to have the rash daily. She saw Dermatology. They performed a biopsy that showed urticaria, but no evidence of vasculitis.She had a positive ALEJANDRA in the context of hives and malar rash. I recommended Rheumatology evaluation. She saw Rheumatology who plans to initiate Xolair. [facility]. She will get her first injection of Xolair on 10/28/21.Data09/13/21Alpha Gal IgE undetectableTotal IgE 475CBC w/ leukocytosis and lymphocytosis without eosinophilia (AEC 94)CMP normalC3, C4, CH50 wnlTryptase normalANA positive, Nuclear, speckled pattern (no titer), reflex rheumatologic antibodies negativeShe had PST at in 2018 (Zina Carbajal, [facility]) which was positive for cat, HDM, cockroach, grass, mold, ragweed/other weeds, trees. Milk and Egg were negative. hives UrticariaShe rep orts urticaria over the last 6 days (starting 09/07/21). She has had generalized pruritus and urticaria over that time. She went to [facility] on 09/08 where she was treated with benadryl and prednisone. On 09/10, she reports developing chest pain and shortness of breath. They returned to the ED and she was treated with prednisone, benadryl, and pepcid. She was treated with IM epinephrine, which seemed to help. She was discharged home. However, she reports continued chest pain and dyspnea since that time. She has been taking benadryl and prednisone, but is not on either of those things right now. Her chest pain is on her R-side and radiating through her back under her shoulder blade. She reports a sharp burning pain. She relays a sensation of wheezing with inspiration. She reports some dyspnea. She does not report any symptoms of infection last week at the start of her hives. She has had diarrhea over the last couple of months for which see saw Gastroenterology. She was prescribed zofran and pepcid, but did not start those medications.She has had facial, finger, and foot/ankle swelling. She does report ecchymosis after resolution of the wheals. Individual lesions last < 24 hours. She reports some blurry vision. No joint pain above baseline. She is not routinely on medications. She does not take any NSAIDs due to an underlying platelet function disorder. She has not noticed an impact of pressure or vibration on her hives. Cold temperatures seem to improve the hives as well as her pruritus. Warmer temperatures seemed to worsen the sensation of pruritus. She has a history of milk allergy. She had PST at in 2018 (Zina Ace[facility]oy[facility]) which was positive for cat, HDM, cockroach, grass, mold, ragweed/other weeds, trees. Milk and Egg were negative. 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) Environmental HistoryLives in a house w/ central air/forced heat, w/o evidence of mold/water damageFlooring in Bedroom: carpetPets: dogs x 4 Functional Status Date Functional Assessmen t No Information Instructions Date Instruction Additional Grahamr isiah Giving encouragement to exercise Related to Body mass index [BMI] 28.0-28.9, adult - Concern for Urtica rial Vasculitis - recommend evaluation and skin biopsy by Dermatology - please get lab testing done at [facility] (see lab orders below)- Start Zyrtec 10 mg twice daily- if no improvement in 2 weeks, increase Zyrtec to 20 mg twice daily and add pepcid 20 mg twice daily- Follow up in 4 weeks Related to Urticaria Giving encouragement to exercise Related to Body mass index [BMI] 26.0-26.9, adult Assessments Type Assessment Date No Information Patient Care Teams Name Effective Dates (start - stop) Status Members No Information
--- OUTSIDE RECORDS SUMMARY | 2024-07-01 08:25 | XMS_ITS | Continuity of Care Document ---
Author Organization [facility] Address [address] [facility] [address] [place] [address] Phone Care Team Providers Care Bight Maker Name Role Phone Kyung Vyas MD Unavailable Unavailable Allergies, Adverse Reactions, Alerts Substance Reaction Status Criticality No Known Allergies Active No Inform ation Procedures Procedure Date Est (Level 4) OFFICE/OUTPATIENT VISIT Ks New (Level 5) OFFICE/OUTPATIENT VISIT Advance Directives Directive Yes / No Effective Date File Name No Information Encounters Encounter Description Practice Location Reason(s) For Visit Diagnoses Date Provider Providers Copied on Encounter [facility], [address] [place] [address], [id number], [place] tel:[phone] [facility] No Information [address]. [address] [place], [address], [place]. tel:[phone] Referring Provider: Bradley Hodge, [address] [facility] [address], [place], [address]. tel:[phone] Est (Level 4) OFFICE/OUTPAT IENT VISIT [facility], [address] [place] [address], [id number], [place] tel:[phone] [facility] hives (chief complaint) Body mass index (BMI) 28.0-28.9, adultUrticaria 2 Asael Cheshil. [address], [place], [address], [place]. tel:[phone] Referring Provider: Bradley Hodge, [address] [facility] [address], [place], [address]. tel:[phone] New (Level 5) OFFICE/OUTPAT IENT VISIT [facility], [address] [place] [address], [id number], tel:[phone] [facility] hives (chief complaint) Body mass index (BMI) 26.0-26.9, adultUrticaria 2 Asael Cheshil. [address], [place], [address], [place]. tel:[phone] Referring Provider: Bradley Hodge, [address] [facility] [address], [place], [address]. tel:[phone] Family History Family Member Type Diagnosis Age At Onset Problem No family history of Allergi c rhinitis Problem No family histor y of Family history of rheumatoid arthritis Maternal grandmother Problem Thyroid disorder Maternal grandmother Problem Asthma Problem No family history of Lupus e rythematosus Payers Payer name Insurance type Covered democrat ID Brenda solis(s) [facility] [id number] Social History Type Description Quantity Date Captured [...] initiate [facility]air. [facility]. She will get her first injection of [...] urticaria over that time. 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
--- OUTSIDE RECORDS SUMMARY | 2025-05-09 11:32 | XMS_ITS | Encounter Summary ---
Author Organization [facility] Address [address] [place] [address] Care Team Providers Care Hand Stoner Name Role Phone Bradley Nunez MD Primary Care Provider [phone] Encounter Details Date Type Department Care Team (Late st Contact Info) Description 05/04/2025 Misc Documentation [facility] [address] [place] [address] [place] [address] [place] [address] Social History Tobacco Use Types Packs/Day Years Used Date Smoking Tobacco: Never Passive Smoke Exposure: Past Smokeless Tobacco: Never Alcohol Use Standard Drinks/Week Comments Yes 0 (1 standard drink = 0.6 oz pur e alcohol) occ PHQ-2 Answer Date Recorded Patient Health Questionnaire-2 Score 0 04/28/2025 Comments Unknown Sex and Gender Information Value Date Recorded Sex Assigned at Not on file Legal Sex Female 9:01 PM CDT Gender Identity Not on file Sexual Orientation Not on file documented as of this encounter Plan of Treatment Upcoming Encounters Date Type Department Care Team (Late Contact Info) Description 07/31/2025 1:40 PM MICROBIOLOGY TECHNOLOGIST Office Visit [facility] [address] [place] [phone] Mercedes Whitaker MD [address] [place] [address] [phone] documented as of this encounter Visit Diagnoses Diagnosis Dizziness- Primary Dizziness and giddiness documented in this encounter Care Teams Hand Stoner Relationship Specialty Start Date End Date Bradley Nunez MD PCP - General INTERNAL MEDICINE 09/10/21 documented as of this encounter
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
--- OUTSIDE RECORDS SUMMARY | 2025-05-09 11:32 | XMS_ITS | Encounter Summary ---
Author Organization [facility] Address [address] [place] [address] Care Team Providers Care Pewter Fabricator Name Role Phone Bradley Nunez MD Primary Care Provider [phone] Encounter Details Date Type Department Care Team (Late st Contact Info) Description 04/28/2025 Results Follow-Up [facility] Family & Internal Medicine [facility] [address] [place] [phone] [place], [place] [id number] [place] [address] CORONAVIRUS (COVID-19) INFLUENZA A & B ANTIGEN IA PANEL Social History Tobacco Use Types Packs/Day Years [...] on file documented as of this encounter Functional Status * Over the past 2 weeks, how often have you been bothered by any of the following problems? Question Answer Date of Assessment Author Status Little interest or pleasure in doing things Not at all 04/28/2025 8:42 AM Clare Oden MA Act carito Feeling down, depressed, or hopeless Not at all 04/28/2025 8:42 AM EVENT SECURITY OFFICER Clare Wade MA Active Patient Health Questionnaire-2 Score 0 04/28/2025 8:42 AM EVENT SECURITY OFFICER Clare Wade MA Active documented as of this encounter Plan of Treatment Upcoming Encounters Date Type Department Care Team (Late st Contact Info) Description 07/31/2025 1:40 PM EVENT SECURITY OFFICER Office Visit [facility] Family Medicine - [place] [address] [place] [address] Mercedes Whitaker MD [address] [place] [address] documented as of this encounter Visit Diagnoses Not on filedocumented in this encounter Additional Health Concerns Infection Onset Date Last Indicated Resolved Time Respiratory Rule Out 04/28/2025 04/28/2025 025 9:03 AM EVENT SECURITY OFFICER documented as of this encounter Care Teams Pewter Fabricator Relationship Specialty Start Date End Date Bradley Nunez MD PCP - General INTERNAL MEDICINE 09/10/21 documented as of this encounter
[2025-05-09 11:44] VITALS: BP 130/88; PULSE 90; RESP 16; TEMP 36.7; O2SAT 98
--- NOTE | 2025-05-09 12:07 | ED.GENADULT ---
HPI - General Adult General Chief complaint: Epistaxis Stated complaint: epistaxis Time Seen by Provider: 05/09/25 12:05 History of Present Illness HPI narrative: 24-year-old female history of platelet dysfunction disorder an Tara-Danlos presents to the emergency department for evaluation for a nose bleed. Patient is said to have recurrent nose bleeds but does not had one in a while. Patient states she became emotionally upset today got into a verbal argument and her nose started bleeding. Patient was had bleeding from the left naris upon arrival to the emergency department. Related Data Home Medications ?Medication ?Instructions ?Recorded ?Confirmed ?Last Taken ?Type omalizumab 150 mg subcutaneous 300 mg subcut ONCE 01/08/23 01/31/24 04/30/23 History solution (Xolair) sertraline 50 mg tablet mg 04/26/25 Unknown History Allergies Allergy/AdvReac Type Severity Reaction Status Date / Time codeine (From Allergy Severe platelette Verified 05/09/25 11:46 Tylenol-Codeine #3) function disorder ibuprofen Allergy Severe platelette Verified 05/09/25 11:46 function disorder Review of Systems Review of Systems: All systems reviewed & are unremarkable except as noted in HPI and below PMFSH Past Medical History Medical History 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 HEAD: normocephalic, atraumatic. EYES: PERRLA/EOMI, conjunctivae clear. NOSE: epistaxis from left naris EARS:TMS clear with good light reflex. THROAT: Pharynx clear, no exudate. NECK: Supple. No adenopathy, no masses. RESPIRATORY: Airway patent, respirations nonlabored. Clear to auscultation bilaterally, no rales, rhonchi, wheezing. CARDIOVASCULAR: Regular rate and rhythm without murmurs rubs or gallops. ABDOMINAL: Soft, nontender, nondistended, normal bowel sounds MUSCULOSKELETAL: Moves all extremities. Strength/ROM intact, No edema, No calf tenderness. NEURO: Alert. Cranial nerves II through XII intact. Good gait. Good coordination SKIN: Warm, dry. Normal Color Course Vital Signs Vital signs: Vital Signs Temperature 98.0 F 05/09/25 11:44 Pulse Rate 90 05/09/25 11:44 Respiratory Rate 16 05/09/25 11:44 Blood Pressure 130/88 05/09/25 11:44 Pulse Oximetry 98 05/09/25 11:44 Oxygen Delivery Room Air 05/09/25 11:44 Temperature 98.0 F 05/09/25 11:44 Pulse Rate 90 05/09/25 11:44 Respiratory Rate 16 05/09/25 11:44 Blood Pressure 130/88 05/09/25 11:44 Pulse Oximetry 98 05/09/25 11:44 Oxygen Delivery Room Air 05/09/25 11:44 Procedures Epistaxis Control left: Epistaxis Control Date: 05/09/25 Epistaxis Control Time: 12:00 Time Out Performed: Yes Nose Prepped With: oxymetazoline Direct Inspection: yes and unable to visualize Cautery Used: none Patient Tolerated Procedure: well and no complications Epistaxis Control Narrative: Initially medications soaked gauze was placed in the left naris from 12 until 12:30 [facility] Narrative Medical decision making narrative: 24-year-old female present to the emergency department for evaluation for epistaxis that started prior to arrival. Shortly after arrival patient had nasal packing with Afrin-soaked gauze and this remained place for 30 minutes. After removal of the gauze patient had no additional bleeding. Patient is currently afebrile with a leukocytosis 11.2 and a stable hemoglobin 11.4. Patient's platelet count is 237. Patient has an INR 1.0. No acute abnormalities on her CMP. Patient did have nasal packing of Afrin-soaked gauze in place for 30 minutes and after this was removed patient was evaluated for additional 30 minutes and patient had no additional bleeding. Patient was offered a rhino rocket but since patient has no additional bleeding follow-up patient would be fine with just discharge instructions and patient was provided a nasal clamp patient will be provided additional outpatient follow-up with ENT patient family are comfortable with plan for discharge instructions. All questions concerns were addressed. Differential Diagnosis Differential Diagnosis: nasal fracture, epistaxis, platlet dysfunction, elevated INR Lab Data MDM Lab Attestation statement: I personally reviewed the patient's lab results. 05/09/25 12:19 05/09/25 12:19 Labs: Lab Results 05/09/25 Range/Units 12:19 WBC 11.2 H (4.5-10.0) K/mm3 RBC 4.68 (4.2-5.4) M/mm3 Hgb 11.4 L (12.0-15.0) g/dL Hct 36.3 L (37.0-47.0) % MCV 77.6 L (80-100) fl MCH 24.4 L (26-34) pg MCHC 31.4 L (32-36) g/dl RDW 14.3 (11.5-14.5) % Plt Count 237 D (150-375) k/mm3 MPV 9.9 (7.4-10.4) fl Immature Gran % (Auto) 0.4 (0-0.5) % Neut % (Auto) 70.7 (45.5-73.1) % Lymph % (Auto) 22.7 (18.3-44.2) % [place] % (Auto) 4.7 (2.6-8.5) % Eos % (Auto) 1.1 (0-4.4) % Baso % (Auto) 0.4 (0.2-1.2) % Lymph # (Auto) 2.54 (0.9-3.2) K/mm3 [place] # (Auto) 0.5 (0.1-0.6) K/mm3 Eos # (Auto) 0.1 (0-0.3) K/mm3 Baso # (Auto) 0.0 (0.0-0.1) K/mm3 Abs Immat Gran (auto) 0.05 H (0.00-0.031) K/mm3 Absolute Neuts (auto) 7.9 H (1.3-6.7) K/mm3 Absolute Nucleated RBC 0.000 (0.0-0.012) K/mm3 Nucleated RBC % 0.0 (0.0-0.2) % PT 13.4 (11.1-14.7) Seconds INR 1.0 APTT 27.9 (22.3-36.8) Seconds Sodium 137 (137-145) mmol/L Potassium 3.9 (3.4-5.0) mmol/L Chloride 107 (98-107) mmol/L Carbon Dioxide 22 (22-30) mmol/L Anion Gap 8 (4-12) mmol/L BUN 9 D (7-17) mg/dL Creatinine 0.59 L (0.7-1.0) mg/dL Estim Creat Clear Calc 118 ml/min Estimated GFR > 60 (59 - ) Glucose 98 (65-110) mg/dL Calcium 9.4 (8.4-10.2) mg/dL Discharge Plan Discharge Clinical Impression: Epistaxis Patient Disposition: Home Condition: Stable Instructions: Antibiotic Form, Nosebleed (ED) Additional Instructions: Nasal clamp as needed if bleeding resumes. Have close follow-up with ENT. If you have any worsening symptoms please call or return to the emergency department. Patient Language: Kazakh Prescriptions: No Action sertraline 50 mg tablet Xolair 150 mg recon soln 300 mg subcut ONCE Rx Instructions: requires multiple injection sites; do not exceed 150 mg per injection site epinephrine 0.3 mg/0.3 mL auto-injector 0.3 mg IM Q5-15M PRN (Reason: anaphylaxis) Qty: 2 0RF Rx Instructions: do not exceed 3 doses per episode Follow-up/Referrals: Dennys Vargas MD [Physician, Ear, Nose, Throat] PHYSICIAN,POOL TECHNICIAN [Non-Staff, Internal Medicine]
--- OUTSIDE RECORDS SUMMARY | 2025-05-09 12:14 | XMS_ITS | Encounter Summary ---
Author Organization [facility] Address [address] [place] [address] Care Team Providers Care Stamper Blocker Name Role Phone Bradley Nunez MD Primary Care Provider [phone] Encounter Details Date Type Department Care Team (Late st Contact Info) Description 05/04/2025 Misc Documentation [facility] Family & Internal Medicine [facility] [address] [place] [address] [place] [address] [place] [address] Social History Tobacco Use Types [...] (Late Contact Info) Description 07/31/2025 1:40 PM WASTE MANAGEMENT RECYCLING TECHNICIAN Office Visit [facility] Family Medicine [facility] [address] [place] [phone] Mercedes Whitaker MD [address] [place] [phone] documented as of this encounter Visit Diagnoses Diagnosis Dizziness- Primary Dizziness and giddiness documented in this encounter Care Teams Stamper Blocker Relationship Specialty Start Date End Date Bradley Nunez MD PCP - General INTERNAL MEDICINE 09/10/21 documented as of this encounter
--- OUTSIDE RECORDS SUMMARY | 2025-05-09 12:14 | XMS_ITS | Encounter Summary ---
Author Organization [facility] Address [address] [place] [address] Care Team Providers Care Drop Forger Helper Name Role Phone Bradley Nunez MD Primary Care Provider [phone] Encounter Details Date Type Department Care Team (Late st Contact Info) Description 04/28/2025 Results Follow-Up [facility] Medical Group Family & Internal Medicine [facility] [address] [place] [phone] [place], [place] [address] [place] [address] CORONAVIRUS (COVID-19) INFLUENZA A & B [...] hopeless Not at all 04/28/2025 8:42 AM PHYSIATRIST Clare Wade MA Active Patient Health Questionnaire-2 Score 0 04/28/2025 8:42 AM PHYSIATRIST Clare Wade MA Active documented as of this encounter Plan of Treatment Upcoming Encounters Date Type Department Care Team (Late st Contact Info) Description 07/31/2025 1:40 PM PHYSIATRIST Office Visit [facility] Medical Group Family Medicine - [place] [address] [place] [address] Mercedes Whitaker MD [address] [place] [address] documented as of this encounter Visit Diagnoses Not on filedocumented in this encounter Additional Health Concerns Infection Onset Date Last Indicated Resolved Time Respiratory Rule Out 04/28/2025 04/28/2025 025 9:03 AM PHYSIATRIST documented as of this encounter Care Teams Drop Forger Helper Relationship Specialty Start Date End Date Bradley Nunez MD PCP - General INTERNAL MEDICINE 09/10/21 documented as of this encounter
--- OUTSIDE RECORDS SUMMARY | 2025-05-09 12:14 | XMS_ITS | Clinical Summary ---
Author Organization [facility] Address [facility] [place] [address] Care Team Providers Care Auxiliary Engineer Name Role Phone Bradley Nunez MD Primary Care Provider [phone] Allergies Active Allergy Reactions Criticality Noted Date [...] following with Dr. Carson Reaves for routine manager gyn care. anxiety 10/19/2023 Overview (12/23/2024): Patient referred [...] Discussed options for counseling through work or [facility] Patient not planning to pursue at this [...] missed in past 2 months due to ZEALYA: None. Able to attend school and home [...] Department Care Team Description 05/04/2025 2:31 PM MAT PACKER - 05/04/2025 11:59 PM [facility] Hospital Encounter [facility] [address] [place] [phone] [place], [place] Discharge Disposition: Home or Self Care (Routine Discharge) 05/04/2025 2:20 PM MAT PACKER Office Visit [facility] Family & Internal Medicine [address] [phone] [place], [place] Nausea (And dizziness-worse the past 3 days) 05/04/2025 Misc Documentation [facility] Family & Internal Medicine [address] [phone] [place]ylene [place] 05/04/2025 Travel 04/28/2025 8:40 AM MAT PACKER Office Visit [facility] Family & Internal Medicine - [address] [phone] [place] Sinus Problem (Sneezing, runny nose, nasal congestion, ears feel full in am.-x2 days) 04/28/2025 Results Follow-Up [facility] Family & Internal Medicine [address] [phone] [place] CORONAVIRUS (COVID-19) INFLUENZA A & B ANTIGEN IA PANEL 04/28/2025 Travel 03/16/2025 7:00 AM CDT Office Visit [facility] Family & Internal Medicine [address] [phone] [place] W[place] Eye Problem [...] MCG/ 0.5 ML DOSE 03/30/2021,03/30/2021,03/03/2021,02/04 MODERNA COVID-19 (HOP WEIGHER LAUREN HERMILO), MRNA, LNP-S, PF, 50 MCG/ [...] Comments Blood Pressure 117/75 05/04/2025 2:04 PM MAT PACKER Pulse 78 05/04/2025 2:04 PM MAT PACKER Temperature 36.8 C (98.2 F) 05/04/2025 2:04 PM MAT PACKER Respiratory Rate 20 05/04/2025 2:04 PM MAT PACKER Oxygen Saturation 100% 05/04/2025 2:04 PM MAT PACKER Inhaled Oxygen Concentration - - Weight 74.8 kg (165 lb) 05/04/2025 2:04 PM MAT PACKER Height 157.5 cm (5' 2) 05/04/2025 2:04 PM MAT PACKER Body Mass Index 30.18 05/04/2025 2:04 PM MAT PACKER Plan of Treatment Upcoming Encounters Date Type Department Care Team (Late st Contact Info) Description 07/31/2025 1:40 PM MAT PACKER Office Visit [facility] Family Medicine - [place] [address] [place] [address] Mercedes Whitaker MD [address] [place] [address] Health Maintenance Due Date Last [...] Vaccines Completed 02/20/2013, 02/20/2013, 11/25/2011 PHQ-2 (Physician [place]) Completed 04/28/2025 Meningococcal B Vaccine Aged Out [...] COMPREHENSIVE METABOLIC PANEL Routine 05/04/2025 2:34 PM MAT PACKER Dizziness HC CBC AUTO W/AUTO DIFF Routine 05/04/2025 2:34 PM MAT PACKER Dizziness TSH W/REFLEX Routine 05/04/2025 2:34 PM MAT PACKER Dizziness HCG QUANT (SERUM)-CHORIONIC GONADOTROPIN Routine 05/04/2025 2:34 PM MAT PACKER Nausea Dizziness CORONAVIRUS (COVID-19) INFLUENZA A & B ANTIGEN IA PANEL Routine 04/28/2025 Suspected COVID-19 virus infection from Last 3 Months Results * HCG QUANT (SERUM)-CHORIONIC GONADOTROPIN (05/04/2025 2:34 PM MAT PACKER) Pathologist [facility] HCG QUANTITATIVE <1 0 - 6 MIU/ML 05/04/2025 4:22 PM MAT PACKER [facility] Comment: WEEKS OF REFERENCE RANGES NON- [...] BLOOD SPECIMEN / Unknown 05/04/2025 2:34 PM MAT PACKER [facility] Final Result [facility] [address] [place] [address], [place] [phone] * COMPREHENSIVE METABOLIC PANEL (05/04/2025 2:34 PM MAT PACKER) Pathologist [facility] GLUCOSE 88 70 - 99 MG/DL 05/04/2025 4:22 PM MAT PACKER [facility] BUN 15 7 - 18 MG/DL 05/04/2025 4:22 PM MAT PACKER [facility] CREATININE S/P/B 0.85 0.55 - 1.02 MG/DL 05/04/2025 4:22 PM [facility] SODIUM S/P/B 137 136 - 145 MMOL/L 05/04/2025 4:22 PM [facility] POTASSIUM S/P/B 3.9 3.5 - 5.1 MMOL/L 05/04/2025 4:22 PM [facility] CHLORIDE S/P/B 101 100 - 108 MMOL/L 05/04/2025 4:22 PM [facility] CO2 30.3 21 - 32 MMOL/L 05/04/2025 4:22 PM [facility] CALCIUM S/P/B 8.9 8.5 - 10.1 MG/DL 05/04/2025 4:22 PM [facility] BILIRUBIN TOTAL S/P/B 0.2 0.2 - 1.2 MG/DL 05/04/2025 4:22 PM [facility] TOTAL PROTEIN S/P/B 7.8 6.4 - 8.2 G/DL 05/04/2025 4:22 PM [facility] ALBUMIN S/P/B 4.2 3.4 - 5.0 G/DL 05/04/2025 4:22 PM [facility] AST 17 15 - 37 U/L 05/04/2025 4:22 PM [facility] ALT 35 14 - 55 U/L 05/04/2025 4:22 PM [facility] ALKALINE PHOSPHATASE S/P/B 74 50 - 136 U/L 05/04/2025 4:22 PM [facility] ANION GAP 5.7 5 - 15 MMOL/L 05/04/2025 4:22 PM [facility] BUN CREATININE RATIO 17.6 6 - 26 05/04/2025 4:22 PM [facility] A/G RATIO 1.2 1.0 - 2.0 RATIO 05/04/2025 4:22 PM [facility] GFR ESTIMATE >90 >90 ML/MIN/1.7 3 M2 05/04/2025 4:22 PM [facility] Comment: NOTE: eGFR is not calculated for patients <18 years of age. This is an estimated GFR calculation using the new CKD EPI creatinine equation without race and so does not require a correction factor for race. This estimated GFR should not be used for calculating drug doses. BLOOD VENOUS BLOOD SPECIMEN / Unknown 05/04/2025 2:34 PM MAT PACKER [facility] Final Result [facility] [address] [place] [id number], * (ABNORMAL) CBC W/DIFF (05/04/2025 2:34 PM MAT PACKER) WBC 10.29 4.4 - 11.0 x10'3/uL 05/04/2025 3:55 PM [facility] RBC 4.85 4.50 - 5.10 x10'6/uL 05/04/2025 3:55 PM [facility] HGB 11.6(L) 12.3 - 15.3 G/DL 05/04/2025 3:55 PM [facility] HCT 38.1 35.9 - 44.6 % 05/04/2025 3:55 PM [facility] MCV 78.6(L) 80.0 - 96.0 FL 05/04/2025 3:55 PM [facility] MCH 23.9(L) 25.3 - 30.9 PG 05/04/2025 3:55 PM [facility] MCHC 30.4(L) 31.0 - 34.1 G/DL 05/04/2025 3:55 PM [facility] RDW 14.4 12.4 - 15.1 % 05/04/2025 3:55 PM [facility] PLT 259 151 - 353 x10'3/uL 05/04/2025 3:55 PM [facility] MPV 10.6 9.6 - 12.0 FL 05/04/2025 3:55 PM [facility] RBC MORPHOLOGY NORMAL 05/04/2025 3:55 PM [facility] PLT MORPH. NORMAL 05/04/2025 3:55 PM [facility] WBC MORPHOLOGY NORMAL 05/04/2025 3:55 PM [facility] LYMPHOCYTES % 30.3 15.8 - 45.0 % 05/04/2025 3:55 PM [facility] NEUTROPHILS % 62.1 42.1 - 71.9 % 05/04/2025 3:55 PM [facility] MONOCYTES % 5.1(L) 5.7 - 12.5 % 05/04/2025 3:55 PM [facility] EOSINOPHILS 1.7 0.0 - 5.6 % 05/04/2025 3:55 PM [facility] BASOPHILS 0.4 0.0 - 1.3 % 05/04/2025 3:55 PM [facility] ABS. NEUTROPHILS 6.40(H) 1.40 - 6.00 x10'3/uL 05/04/2025 3:55 PM [facility] IMMATURE GRANS % 0.4 0.0 - 0.5 % 05/04/2025 3:55 PM MAT PACKER [facility] ABS. LYMPHOCYTES 3.12 0.80 - 4.70 x10'3/uL 05/04/2025 3:55 PM MAT PACKER [facility] BLOOD VENOUS BLOOD SPECIMEN / Unknown 05/04/2025 2:34 PM MAT PACKER us [facility] Final Result [facility] [address] [place] [address], [place] [phone] * TSH W/REFLEX (05/04/2025 2:34 PM MAT PACKER) Pathologist [facility] TSH 1.150 0.358 - 3.74 uIU/ML 05/04/2025 4:22 PM MAT PACKER [facility] Comment: HIGH DOSES OF BIOTIN MAY INTERFERE WITH THIS TEST RESULT. CORRELATION TO CLINICAL HISTORY AND PRESENTATION RECOMMENDED. FREE T4 NOT INDICATED BLOOD VENOUS BLOOD SPECIMEN / Unknown 05/04/2025 2:34 PM MAT PACKER us [facility] Final Result Performing Organization Address [facility]/ZIP Co de Phone Number [facility] [address] [place] [address], [place] [phone] * CORONAVIRUS (COVID-19) INFLUENZA A & B ANTIGEN IA PANEL (04/28/2025) CORONAVIRUS ANTIGEN IA NEGATIVE NEGATIVE [id number], [place] INFLUENZA A NEGATIVE NEGATIVE [id number], [place] INFLUENZA B NEGATIVE NEGATIVE [id number], [place] Internal Control: VALID VALID [id number], [place] SWAB NASAL STRUCTURE / Unknown 04/28/2025 us [facility] - GENERAL ORDER JONES Final Result [id number] DAYANA POWELL [address] [place] [address], from Last 3 Months Insurance [employer] [facility] Care Teams Auxiliary Engineer Relationship Specialty Start Date End Date Bradley Nunez MD PCP - General INTERNAL MEDICINE 09/10/21
[2025-05-09 12:24] LABS: Hematocrit 36.3 % (37.0-47.0); Hemoglobin 11.4 g/dL (12.0-15.0); Immature Granulocyte Percent A 0.4 % (0-0.5); Lymphocytes Absolute Auto 2.54 K/mm3 (0.9-3.2); Mean Corpuscular HGB Conc 31.4 g/dl (32-36); Mean Corpuscular Hemoglobin 24.4 pg (26-34); Mean Corpuscular Volume 77.6 fl (80-100); Nucleated Red Blood Cells Absolute Auto 0.000 K/mm3 (0.0-0.012); Nucleated Red Blood Cells Perc 0.0 % (0.0-0.2); Platelet Count Result 237 k/mm3 (150-375); Red Blood Count 4.68 M/mm3 (4.2-5.4); White Blood Count 11.2 K/mm3 (4.5-10.0)
[2025-05-09 12:39] LABS: Anion Gap 8 mmol/L (4-12); Blood Urea Nitrogen 9 mg/dL (7-17); Calcium 9.4 mg/dL (8.4-10.2); Carbon Dioxide 22 mmol/L (22-30); Chloride 107 mmol/L (98-107); Estimated CRCL calculation 118 ml/min; Estimated Glomerular Filt Rate > 60; Glucose 98 mg/dL (65-110); Potassium 3.9 mmol/L (3.4-5.0); Sodium 137 mmol/L (137-145)
[2025-05-09 12:42] LABS: INR 1.0; Partial Thromboplastin Time 27.9 Seconds (22.3-36.8); Prothrombin Time 13.4 Seconds (11.1-14.7)
== END 2025-05-09 13:20 | disposition home or self-care (01) ==
PROVIDERS: Emergency Provider Emergency Medicine; PCP Internal Medicine
DX: R04.0 Epistaxis (principal); Q79.60 Ehlers-Danlos syndrome, unspecified; D69.1 Qualitative platelet defects
CPT/HCPCS: 30901; 36415; 80048; 85025; 85610; 85730; 99283; A9270